=== PATIENT | female | born 1990 | race Caucasian/White ===

== ENCOUNTER 2019-05-27 15:45 | Emergency (ER) | payer OTHER ==
[~2019-05-27] VITALS: Ht 167.6 cm; Wt 68.0 kg
[~2019-05-27 15:45] MED LIST: ACYCLOVIR 200200 MG; BACTRIM DS TAB1 EACH PO; PYRIDIUM200 MG PO; VICODIN 5-5001 EACH PO
--- NOTE | 2019-05-27 16:22 | EKG ---
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
[2019-05-27 18:24] LABS: BASOPHILS 0.4 % (0.0-2.0); EOSINOPHILS 0.9 % (0.0-3.0); HEMATOCRIT 43.6 % (37.0-47.0); HEMOGLOBIN 14.8 gm/dL (12.0-15.0); LYMPHOCYTES 31.1 % (24.0-44.0); MCH 31.4 pg (26.0-34.0); MCV 92.3 fL (80.0-100.0); MONOCYTES 6.4 % (1.0-8.0); PLATELET COUNT 259 thou/uL (150-400); POLYS 61.2 % (36.0-66.0); RBC 4.73 mil/uL (4.20-5.00); RDW 12.6 % (10.5-14.5); WBC 11.5 thou/uL (4.0-11.0)
[2019-05-27 18:33] LABS: ANION GAP 10 mmol/L (7-16); BUN 13 mg/dL (7-18); CALCIUM 9.5 mg/dL (8.5-10.1); CHLORIDE 101 mmol/L (98-107); CO2 27 mmol/L (21-32); GLUCOSE 99 mg/dL (74-106); POTASSIUM 3.8 mmol/L (3.5-5.1); SODIUM 138 mmol/L (136-145)
[2019-05-27 18:42] LABS: ALBUMIN 4.4 g/dL (3.4-5.0); SGOT 17 U/L (15-37); SGPT 40 U/L (30-65); TOTAL BILIRUBIN 0.2 mg/dL (<0.1-1.0); TOTAL PROTEIN 8.4 g/dL (6.4-8.2); TROPONIN-I <0.06 ng/mL (<0.06)
[2019-05-27 18:44] LABS: URINE BILIRUBIN NEGATIVE (Negative); URINE BLOOD NEGATIVE (Negative); URINE CLARITY CLEAR; URINE COLOR YELLOW; URINE GLUCOSE-RANDOM* NEGATIVE (Negative); URINE KETONES NEGATIVE (Negative); URINE LEUKOCYTES-REFLEX TRACE (Negative); URINE NITRITE-REFLEX NEGATIVE (Negative); URINE PROTEIN (DIPSTICK) NEGATIVE (Negative); URINE SPECIFIC GRAVITY 1.015 (1.005-1.035); URINE UROBILINOGEN 0.2 E.U./dl (0.2-1.0)
[2019-05-27 19:42] VITALS: BP 118/71
[2019-05-27] MEDS ORDERED: ZOFRAN ODT4 MG PO (19:54)
[2019-05-27] MEDS ORDERED: LORAZEPAM 0.50.5 MG PO (19:54)
== END 2019-05-27 20:15 | disposition home or self-care (01) ==
LOC: ER 15:45
PROVIDERS: Emergency Medicine
DX: R53.1 Weakness (principal)